=== PATIENT | female | born 1995 | race Hispanic/Latino ===

== ENCOUNTER 2017-05-07 18:55 | Emergency (ER) | payer OTHER ==
[~2017-05-07] VITALS: Ht 154.9 cm; Wt 73.6 kg
[2017-05-07 19:08] VITALS: BP 141/84; PULSE 101; RESP 16; O2SAT 100
[2017-05-07 19:59] LABS: BASOPHILS % (AUTO) 0.4 % (0-3); EOSINOPHILS % (AUTO) 3.8 % (0-5); MONOCYTES % (AUTO) 10.5 % (4-12); Mean Corpuscular Volume 83.5 fL (81-100); Platelet Count 215 bil/L (150-400)
== END 2017-05-07 21:07 | disposition left against medical advice (07) ==
LOC: SED 18:55
DX: R10.9 Unspecified abdominal pain (principal); Z53.21 Procedure and treatment not carried out due to patient leaving prior to being seen by health care provider